=== PATIENT | male | born 1975 | race American Indian/Alaskan Native ===

== ENCOUNTER 2017-02-03 09:27 | Emergency (ER) | payer OTHER, BC ==
[2017-02-03 10:06] LABS: CHLORIDE,CL 93 mmol/L (101-111); SODIUM,NA 130 mmol/L (135-145)
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
[2017-02-03] MEDS ORDERED: Ketorolac 30 MG/ML SDV IVPUSH ONE (11:16)
== END 2017-02-03 12:17 | disposition home or self-care (01) ==
LOC: DL.ED 09:27
DX: S60.221A Contusion of right hand, initial encounter (principal); Z79.82 Long term (current) use of aspirin; Z88.5 Allergy status to narcotic agent; Z79.899 Other long term (current) drug therapy; V87.7XXA Person injured in collision between other specified motor vehicles (traffic), initial encounter
CPT/HCPCS: 36415; 71010; 73130; 80053; 80305; 81003; 85025; 96374; 99285; G0480; J1885

== ENCOUNTER 2023-01-18 07:53 | Emergency (ER) | payer BC, OTHER ==
[2023-01-18 08:15] VITALS: BP 137/79; PULSE 70
[2023-01-18] MEDS ORDERED: Sodium Chloride 0.9% 10 ML Syringe FLUSH PRN (08:44)
[2023-01-18] MEDS ORDERED: Sodium Chloride 0.9% 1,000 ML IV SCH (08:45)
[2023-01-18] MEDS ORDERED: diphenhydrAMINE 50 MG/ML SDV IVPUSH ONE (08:45)
[2023-01-18] MEDS ORDERED: Vancomycin 2 GM in Sodium Chloride 0.9% 500 ML IV ONE (08:47)
[2023-01-18] MEDS ORDERED: Diphtheria,Pertussis(Acell),Tetanus Vaccine 0.5 ML Syringe IM ONE (09:13)
[2023-01-18 09:20] LABS: BASOPHILS PERCENT AUTO 0.4 % (0.0-1.0); EOSINOPHILS PERCENT AUTO 2.5 % (1.0-3.0); HEMATOCRIT 39.5 % (40.0-54.0); HEMOGLOBIN 13.1 g/dL (14.0-18.0); LYMPHOCYTES PERCENT AUTO 25.3 % (20.5-50.1); MEAN CORPUSCULAR HEMOGLOBIN 28.4 pg (27.0-34.0); MEAN CORPUSCULAR HGB CONC 33.2 g/dL (33.0-35.0); MEAN CORPUSCULAR VOLUME 85.7 fL (80-100); MONOCYTES PERCENT AUTO 8.5 % (2-8); NEUTROPHILS PERCENT AUTO 63.3 % (42.2-75.2); PLATELET COUNT,PLT 279 10^3/uL (150-450); RED BLOOD CELL COUNT 4.61 10^6/uL (4.6-6.2); WHITE BLOOD CELL COUNT,WBC 8.1 10^3/uL (5.0-10.0)
== END 2023-01-18 11:32 | disposition home or self-care (01) ==
LOC: DL.ED 07:53
DX: S61.411A Laceration without foreign body of right hand, initial encounter (principal); L03.012 Cellulitis of left finger; E78.00 Pure hypercholesterolemia, unspecified; K21.9 Gastro-esophageal reflux disease without esophagitis; I10 Essential (primary) hypertension; E11.9 Type 2 diabetes mellitus without complications; Z88.1 Allergy status to other antibiotic agents; Z88.5 Allergy status to narcotic agent; Z79.899 Other long term (current) drug therapy; Z79.4 Long term (current) use of insulin; Z79.82 Long term (current) use of aspirin; Z23 Encounter for immunization; W26.0XXA Contact with knife, initial encounter
CPT/HCPCS: 36415; 85025; 86140; 90471; 90715; 96365; 96366; 96375; 99283; J1200; J3370; J7030; J7040; J3490